=== PATIENT | male | born 1940 | race Hispanic/Latino ===

== ENCOUNTER → 2017-12-22 | Outpatient (CLI) | payer OTHER, MEDICARE ==
[~2017-12-22] MED LIST: ASPI-1197 PO; LISI2.5T2 PO; METO25TA6 PO; NITR0.4T50 SL; REGADENOSON 0.4 MG/5 ML PF SYG IVP SCH
== END | disposition home or self-care (01) ==
LOC: SHCH 08:13
PROVIDERS: ATTEND Internal Medicine Cardiovascular Disease
DX: I47.1 Supraventricular tachycardia (principal); I25.119 Atherosclerotic heart disease of native coronary artery with unspecified angina pectoris
CPT/HCPCS: 78452; 93017; 96374; A9500 ×2; J2785

== ENCOUNTER → 2019-12-08 | Outpatient (CLI) | payer OTHER, MEDICARE ==
[~2019-12-08] MED LIST changes: -ASPI-1197 PO; +DIGO125T71 PO; +LISI-617 PO; -LISI2.5T2 PO; -METO25TA6 PO; -REGADENOSON 0.4 MG/5 ML PF SYG IVP SCH; +TRAM50TA4 PO
== END | disposition home or self-care (01) ==
LOC: SHCH 09:26
PROVIDERS: ATTEND Internal Medicine Cardiovascular Disease
DX: I80.202 Phlebitis and thrombophlebitis of unspecified deep vessels of left lower extremity (principal); I82.622 Acute embolism and thrombosis of deep veins of left upper extremity
CPT/HCPCS: 93971

== ENCOUNTER → 2020-09-20 | Outpatient (CLI) | payer OTHER, MEDICARE | END | disposition home or self-care (01) | LOC: SHCH 14:20 | PROVIDERS: ATTEND Internal Medicine Cardiovascular Disease | DX: R06.00 Dyspnea, unspecified (principal) | CPT/HCPCS: 93306 ==

== ENCOUNTER → 2023-03-25 | Outpatient (CLI) | payer OTHER, MEDICARE ==
[~2023-03-25] MED LIST changes: -LISI-617 PO; +LISI5TAB21 PO
[2023-03-25 12:44] LABS: CREATININE 0.9 mg/dL (0.5-1.5); DIGOXIN 0.86 ng/mL (0.50-2.00); POTASSIUM 3.8 mmol/L (3.5-5.1)
== END | disposition home or self-care (01) ==
LOC: LAB 10:24
PROVIDERS: ATTEND Physician Assistant
DX: I10 Essential (primary) hypertension (principal); Z95.0 Presence of cardiac pacemaker; Z79.01 Long term (current) use of anticoagulants; Z79.899 Other long term (current) drug therapy
CPT/HCPCS: 36415; 80048; 80162